=== PATIENT | female | born 1955 | race African-American/Black ===

== ENCOUNTER → 2017-03-08 | Day surgery (SDC) | payer BC ==
[~2017-03-08] MED LIST: FELO10TA PO; GABA300C8 PO; HYDR1TAB26 PO; HYDROmorphone 2 MG/ML VIAL IV PRN; IV RINGERS,LACTATED 1000ML 1,000 ML IV SCH; LIDOCAINE 1% 1 ML SYRINGE. ID PRN; LISI-334; MELO7.5O PO; MORPHINE SULFATE 2 MG/ML DISP.SYRIN. IV PRN; ONDANSETRON PF 4 MG/2 ML VIAL. IV PRN; PROCHLORPERAZINE 10 MG/2 ML VIAL. IV PRN; PROPOFOL 20 ML IV ONE; TIZA4TAB PO; fentaNYL PF VIAL 100 MCG/2 ML VIAL IV PRN
[2017-03-08 13:10] VITALS: BP 127/72
== END | disposition home or self-care (01) ==
LOC: ENDOS 10:53
PROVIDERS: ATTEND Internal Medicine Gastroenterology
DX: Z12.11 Encounter for screening for malignant neoplasm of colon (principal); K64.0 First degree hemorrhoids; I10 Essential (primary) hypertension; M19.90 Unspecified osteoarthritis, unspecified site; Z72.89 Other problems related to lifestyle; Z98.51 Tubal ligation status; Z90.710 Acquired absence of both cervix and uterus; Z80.0 Family history of malignant neoplasm of digestive organs
CPT/HCPCS: J2704

== ENCOUNTER → 2017-11-06 | Outpatient (CLI) | payer BC | END | disposition home or self-care (01) | LOC: KCIC MRI 10:37 | DX: M67.432 Ganglion, left wrist (principal) | CPT/HCPCS: 73221 ==

== ENCOUNTER → 2021-06-17 | Outpatient (CLI) | payer MEDICARE, BC ==
[2017-03-08 13:10] VITALS: BP 127/72
[~2021-06-17] MED LIST changes: +ATEN1TAB3 PO; +CYCL10TA2 PO; -FELO10TA PO; +FELO10TA4 PO; +GABA300C18 PO; -GABA300C8 PO; -HYDROmorphone 2 MG/ML VIAL IV PRN; -IV RINGERS,LACTATED 1000ML 1,000 ML IV SCH; -LIDOCAINE 1% 1 ML SYRINGE. ID PRN; -LISI-334; +LISI20TA18; -MORPHINE SULFATE 2 MG/ML DISP.SYRIN. IV PRN; -ONDANSETRON PF 4 MG/2 ML VIAL. IV PRN; -PROCHLORPERAZINE 10 MG/2 ML VIAL. IV PRN; -PROPOFOL 20 ML IV ONE; -TIZA4TAB PO; +TIZA4TAB2 PO; -fentaNYL PF VIAL 100 MCG/2 ML VIAL IV PRN
[2021-06-17 14:38] LABS: BASO # 0.1 x10^3/uL (0.0-0.2); BASO % 1 % (0-3); EOS # 0.2 x10^3/uL (0.0-0.7); EOS % 2 % (0-3); HEMATOCRIT 34.8 % (36.0-47.0); HEMOGLOBIN 11.3 g/dL (12.0-15.5); LYMPH # 2.9 x10^3/uL (1.0-4.8); LYMPH % 28 % (24-48); MEAN CORPUSCULAR HEMOGLOBIN 26 pg (25-35); MEAN CORPUSCULAR HGB CONC 32 g/dL (31-37); MEAN CORPUSCULAR VOLUME 79 fL (79-100); MONO # 0.6 x10^3/uL (0.0-1.1); MONO % 6 % (0-9); NEUT # 6.7 x10^3/uL (1.8-7.7); NEUT % 64 % (31-73); PLATELET COUNT 349 x10^3/uL (140-400); RED BLOOD COUNT 4.42 x10^6/uL (3.50-5.40); WHITE BLOOD COUNT 10.5 x10^3/uL (4.0-11.0)
[2021-06-17 14:53] LABS: ALBUMIN 3.4 g/dL (3.4-5.0); ALBUMIN/GLOBULIN RATIO 0.8 (1.0-1.7); CALCIUM 9.1 mg/dL (8.5-10.1); CREATININE 1.1 mg/dL (0.6-1.0); GFR 60.1; TOTAL BILIRUBIN 0.4 mg/dL (0.2-1.0); TOTAL PROTEIN 7.7 g/dL (6.4-8.2)
--- NOTE | 2021-06-17 14:53 | EKG ---
[facility] [address] [place] [id number] Test Date: 2021-06-17 Test Time: 14:49:07 Pat Name: SANDEEP VALENTINE Department: Room: Gender: F Fluorescent Solution Mixer: SLOAN : [id number] Requested By: MYKE FRIED Order Number: [id number] Reading MD: Lit Lofton Measurements Intervals Aurora Rate: 66 P: 44 ME: 202 QRS: -41 QRSD: 110 T: 7 QT: 434 QTc: 457 Interpretive Statements SINUS RHYTHM LEFT ATRIAL ABNORMALITY ABNORMAL LEFT AXIS DEVIATION LEFT ANTERIOR FASCICULAR BLOCK LEFT VENTRICULAR HYPERTROPHY Electronically Signed On 06-20-2021 9:29:38 CDT by Lit Lofton
[2021-06-17 14:55] LABS: POTASSIUM 2.5 mmol/L (3.5-5.1)
--- NOTE | 2021-06-17 15:02 | RAD ---
EXAM: Chest, 2 views. HISTORY: Preoperative evaluation. COMPARISON: None. FINDINGS: 2 views of the chest are obtained. There is no infiltrate, pleural effusion or pneumothorax . There is a prominent cardiac silhouette. There is right perihilar embolization material. IMPRESSION: No acute pulmonary finding. Electronically signed by: Zohra Ford MD (06/17/2021 2:59 PM) [id number]
--- NOTE | 2021-06-17 15:02 | NUR ---
PT HERE FOR PRE TESTING LABS, POTASSIUM 2.5. DR FRIED'S RN DANG NOTIFIED.
[2021-06-17 15:06] LABS: BILIRUBIN,URINE NEGATIVE (NEG); CLARITY,URINE CLEAR; COLOR,URINE YELLOW; NITRITE,URINE NEGATIVE (NEG); PROTEIN,URINE NEGATIVE (NEG-TRACE)
[2021-06-17 15:14] LABS: BACTERIA,URINE FEW /HPF (0-FEW); HYALINE CASTS, URINE OCCASIONAL /HPF; RBC,URINE RARE /HPF (0-2); WBC,URINE OCC /HPF (0-4)
[2021-06-18 00:08] LABS: HEMOGLOBIN A1C 6.2 % (4.8-5.6)
== END ==
LOC: SURGPAT 13:36
PROVIDERS: ATTEND Obstetrics & Gynecology
DX: Z01.818 Encounter for other preprocedural examination (principal); I44.4 Left anterior fascicular block; I51.7 Cardiomegaly; I10 Essential (primary) hypertension; R73.03 Prediabetes
CPT/HCPCS: 36415; 71046; 80053; 81001; 83036; 85025; 93005

== ENCOUNTER 2021-07-13 06:05 | Observation (INO) | payer MEDICARE, BC ==
[2021-07-13] VITALS (8 sets, daily range): BP systolic 112–166; BP diastolic 62–80
[~2021-07-13] VITALS: Ht 162.6 cm; Wt 102.0 kg
[~2021-07-13 06:05] MED LIST changes: +HYDROmorphone 2 MG/ML VIAL IVP PRN; +IV RINGERS,LACTATED 1000ML 1,000 ML IV SCH; +MORPHINE SULFATE 2 MG/ML INJ. IVP PRN; +POTA10TA12 PO; +PROCHLORPERAZINE 10 MG/2 ML VIAL. IVP PRN; +fentaNYL PF VIAL 100 MCG/2 ML VIAL IVP PRN
[2021-07-13] MEDS ORDERED: ONDANSETRON PF 4 MG/2 ML VIAL. ONE (06:23)
[2021-07-13] MEDS ORDERED: PROPOFOL 10 MG/ML (20ML) VIAL. IV ONE (06:23)
[2021-07-13] MEDS ORDERED: LIDOCAINE 2% PF 5 ML VIAL. ONE (06:23)
[2021-07-13] MEDS ORDERED: ROCURONIUM 50 MG/5 ML VIAL. ONE ×2 (06:23→09:20)
[2021-07-13] MEDS ORDERED: DEXAMETHASONE SOD PHOS 4 MG/ML VIAL ONE (06:23)
[2021-07-13] MEDS ORDERED: ESTROGENS, CONJ VAGINAL CREAM 30GM TUBE. ONE (06:57)
[2021-07-13] MEDS ORDERED: BUPIVACAINE-EPI 0.25%-1:200000 MPF 30 ML VIAL. ONE (06:57)
[2021-07-13] MEDS ORDERED: INDIGOTINDISULFONATE SODIUM 40 MG/5 ML AMPUL. ONE (06:57)
[2021-07-13 07:03] LABS: BASO % 1 % (0-3); EOS # 0.3 x10^3/uL (0.0-0.7); EOS % 3 % (0-3); HEMATOCRIT 33.5 % (36.0-47.0); LYMPH # 2.3 x10^3/uL (1.0-4.8); LYMPH % 28 % (24-48); MEAN CORPUSCULAR HEMOGLOBIN 26 pg (25-35); MEAN CORPUSCULAR HGB CONC 33 g/dL (31-37); MEAN CORPUSCULAR VOLUME 80 fL (79-100); MONO # 0.5 x10^3/uL (0.0-1.1); MONO % 6 % (0-9); NEUT # 5.1 x10^3/uL (1.8-7.7); NEUT % 63 % (31-73); PLATELET COUNT 373 x10^3/uL (140-400); RED CELL DISTRIBUTION WIDTH 16.8 % (11.5-14.5); WHITE BLOOD COUNT 8.2 x10^3/uL (4.0-11.0)
[2021-07-13] MEDS ORDERED: fentaNYL PF VIAL 250 MCG/5 ML VIAL ONE (07:26)
[2021-07-13] MEDS ORDERED: SUCCINYLCHOLINE 200 MG/10 ML VIAL. ONE (07:27)
[2021-07-13] MEDS ORDERED: MIDAZOLAM HCL/PF 2 MG/2 ML VIAL. ONE ×2 (08:06→08:07)
[2021-07-13] MEDS ORDERED: ePHEDrine PF IN SALINE 50 MG/10 ML SYRINGE. IV ONE (08:07)
[2021-07-13] MEDS ORDERED: GLYCOPYRROLATE 1 MG/5 ML VIAL. ONE (08:23)
[2021-07-13] MEDS ORDERED: NEOSTIGMINE METHYLSULFATE 5 MG/5 ML SYRINGE. ONE (09:41)
[2021-07-13] MEDS ORDERED: CALCIUM CARBONATE 500 MG TAB.CHEW PO PRN (10:45)
[2021-07-13] MEDS ORDERED: LACTULOSE 20 GM/30 ML SOLUTION. PO PRN (10:45)
[2021-07-13] MEDS ORDERED: ONDANSETRON PF 4 MG/2 ML VIAL. IV PRN (10:45)
[2021-07-13] MEDS ORDERED: MAGNESIUM HYDROXIDE 2,400 MG/30 ML ORAL.SUSP. PO PRN (10:45)
[2021-07-13] MEDS ORDERED: SIMETHICONE 80 MG TAB.CHEW PO PRN (10:45)
[2021-07-13] MEDS ORDERED: MORPHINE SULFATE 2 MG/ML INJ. IV PRN (10:45)
[2021-07-13] MEDS ORDERED: diphenhydrAMINE HCL 25 MG CAPSULE PO PRN (10:45)
[2021-07-13] MEDS ORDERED: NALOXONE 0.4 MG/ML VIAL. IV PRN (10:45)
[2021-07-13] MEDS ORDERED: HYDROcodone/APAP 5/325MG 1 TAB TABLET PO PRN (10:45)
[2021-07-13] MEDS ORDERED: ZOLPIDEM 5 MG TABLET. PO PRN (10:45)
[2021-07-13] MEDS ORDERED: diphenhydrAMINE 50 MG/ML VIAL IV PRN (10:45)
[2021-07-13] MEDS ORDERED: 0.9 % SODIUM CHLORIDE 10 ML DISP.SYRIN. IV PRN (10:45)
[2021-07-13] MEDS ORDERED: MAG HYDROX/ALUMINUM HYD/SIMETH 30 ML ORAL.SUSP PO PRN (10:45)
[2021-07-13] MEDS ORDERED: SEVOFLURANE > 120 MINUTES. IH ONE (10:50)
--- NOTE | 2021-07-13 10:59 | PDOC ---
BRIEF OPERATIVE NOTE Date: Jul 13, 2021 Pre-Op Diagnosis enlarged fibroid uterus, anemia, pmb Post-Op Diagnosis same plus adhesions Procedure Performed LAVH/BSO/lysis of bowel adhesions and morcellation of uterus vaginally to get it out Surgeon Dr. Livia Fried Forward Air Controller/Air Officer DERREK Franco Anesthesiologist Dr. Willoughby Anesthesia Type: General Blood Loss 300cc IV Fluid 2L Urine Output 350cc clear until morcellation then slightly pink but clearing by end of case Specimens Obtained cervix, uterus, fibroids, bilateral tubes and ovaries Findings enlarged fibroid uterus, left sided bowel adhesions to left tube, also adhesions of pericolic fat to posterior fibroids on post uterus, adhesions under prior tubal incision infraumbilical incision Complications none Operative Note [id number] LIVIA FRIED MD Jul 13, 2021 10:59
[2021-07-13 11:30] LABS: HEMATOCRIT 31.1 % (36.0-47.0); RED BLOOD COUNT 3.88 x10^6/uL (3.50-5.40); RED CELL DISTRIBUTION WIDTH 16.5 % (11.5-14.5); WHITE BLOOD COUNT 13.4 x10^3/uL (4.0-11.0)
[2021-07-13] MEDS ORDERED: fentaNYL PF VIAL 100 MCG/2 ML VIAL ONE (11:36)
[2021-07-13] MEDS: fentaNYL PF VIAL 100 MCG/2 ML VIAL IVP PRN ×2 (11:40→11:55)
--- NOTE | 2021-07-13 13:17 | OP ---
DATE OF SURGERY: 07/13/2021 PREOPERATIVE DIAGNOSES: Enlarged fibroid uterus, anemia, postmenopausal bleeding. POSTOPERATIVE DIAGNOSES: Enlarged fibroid uterus, anemia, postmenopausal bleeding plus adhesive disease. PROCEDURES: Laparoscopic-assisted vaginal hysterectomy, bilateral salpingo-oophorectomy, lysis of bowel adhesions and morcellation of uterus vaginally to get it out. SURGEON: Livia Vasquez MD BRUSH HOLDER INSPECTOR: DERREK Fenton ANESTHESIOLOGIST: Justin Willoughby MD ANESTHESIA: General. BLOOD LOSS: 300 mL URINE OUTPUT: 350 mL initially clear until the morcellation and then slightly pink tinged, but it was already clearing by the end of the case. INTRAVENOUS FLUIDS: 2 liters of crystalloid. SPECIMENS: The cervix, uterus, tubes, ovaries with obviously the fibroids. FINDINGS: An enlarged fibroid uterus, left-sided bowel adhesions to the left tube also pericolic adhesions to the posterior uterus where the fibroids and stuff were all along the left side and then she also had omental adhesions infraumbilical over the previous incision site of her prior tubal ligation. COMPLICATIONS: None. DESCRIPTION OF PROCEDURE: This patient was taken to the operating room where general anesthesia was placed. The patient was [facility] The patient's abdomen and vagina were both prepped and draped in the normal sterile fashion and a Ruiz catheter had been inserted under sterile technique. Upon my arrival, a time-out was performed. Once everyone agreed on the patient, the site, the procedure, the antibiotics, the procedure was initiated. A bivalve speculum was placed in the patient's vagina. A single-tooth tenaculum was used to grasp the anterior lip of the cervix. A 10 mL of 0.25% Marcaine with epinephrine was used to circumferentially inject around the cervix for both hemodissection and hemostatic purposes later. The Valtchev uterine manipulator was placed through the endocervical os, locked on the single tooth tenaculum and the bivalve speculum was then removed. Top gloves were discarded and changed. Attention was then turned to the abdomen where a supraumbilical incision was made with the scalpel, carried down through the underlying layer to the fascia with the curved Noram. The 5 mm Visiport was used to directly enter the abdominal cavity. Opening patient pressure was 10 or 11 mmHg. She had a very thick anterior abdominal wall, but direct abdominal placement was confirmed via the laparoscope and carbon dioxide gas was used to appropriately insufflate the abdominal cavity initially to maintain 15, but it did not insufflate, just going up 4-5 mmHg, so we did turn it up to 17 or 18. At this point, Trendelenburg was obtained. Overhead lights were dimmed. Right and left lower quadrant ports were obtained. We went around the adhesion in the midline. We did not take that one down. Right tube and ovary were clear, enlarged fibroid uterus. Left ovary was under the bowel, but the left tube was in the bowel and on the posterior uterus where the fibroid was, so this all had to be taken down off the left sidewall, the left bowel and the left tube sharply. Once the bowel was out of the way, the left tube and ovary were elevated, the ureter could be seen coursing low in the pelvis well out of the way, so crossing the left infundibulopelvic ligament with the LigaSure, cauterizing and cutting going over and staying right under the left tube and ovary and then crossing the left round ligament, cauterizing and cutting it and starting that bladder flap from that side. This was done exactly the same on the right side, except it was free, elevating the right tube and ovary finding the ureter coursing low and watching it peristalsed in the pelvis, staying high on the infundibulopelvic ligament, cauterizing and cutting, taking it all the way over crossing the right round ligament going down and making that bladder flap again sharply. Once this was done, the uterus was pushed cephalad getting the right uterine vessels on this side and then staying inside that pedicle posteriorly, hugging the posterior cervix and getting the blood supply. Then, crossing contralaterally, once that bladder was down and hugging right on that cervix and trying to stay vertical and hugged that cervix on the left side as well. The uterus did juan a and we did get the blood supply. The posterior area was clear. There were no adhesions in the posterior cul-de-sac. So, once it cleared and we made sure the bladder was down and we got the blood supply, we decided to go vaginally. The single tooth and Valtchev were removed. A weighted speculum was placed in the patient's vagina. Thyroid Christopher clamps were placed on the anterior and posterior lips of the cervix respectively. A scalpel was used to make a circumferential incision in the cervix. The blunt end of the plastic Yankauer tip was used to gently push up the anterior bladder peritoneum. This went up very nicely sharply and then bluntly using the open Ray-Terry to gently push up the anterior bladder peritoneum. Posteriorly, the cervix was elevated and the posterior cul-de-sac was seen bulging and it was sharply entered with curved Smallwood scissors and a #0 Vicryl stitch was used to secure the posterior peritoneum here to the vaginal cuff, was tagged with a curved Norma clamp and the needle was cut and passed off. At this point, the short weighted vaginal speculum was removed and replaced with the long weighted Russ speculum in the posterior cul-de-sac. Curved Varinder clamps x 2 were placed on the patient's left uterosacral ligament where they were doubly clamped with curved Varinder's, cut with curved Smallwood scissors and suture ligated x 2 with 0 Vicryl. Second one was taken through the vaginal cuff securing uterosacral ligament to the vaginal cuff, tagged with a straight Norma clamp and the needle was cut and passed off. This was done exactly the same on the patient's right side, double clamping the uterosacrals with curved Varinder's, cutting with curved Smallwood scissors, suture ligating x 2 with 0 Vicryl and taking the second one through the vaginal cuff, tagging it with a straight Norma clamp, cutting and passing the needle off. At this point, a curved Mixter clamp was taken around the remaining pedicle on the left side and the vaginal LigaSure was used to cauterize and cut the remaining pedicle. It did appear to be free on this side, I could get my finger all the way around and then there was a tiny bit on the right side that was easily my finger got around and we cauterized and cut it as well. Once everything appeared to be out, lifting the cervix anteriorly and trying to get the posterior uterus with a couple single tooth and double tooth tenaculums. The morcellation was begun once the blood supply had been secured. Taking it out in pieces making very sure to keep a retractor up on the bladder and a retractor on the side and then of course the weighted Russ speculum was in the posterior cul-de-sac, taking it out in pieces until we finally got it out. There were multiple fibroids, multiple pieces cut out. This was a very enlarged uterus. There was some slight bleeding from the patient's left. It appeared to be left uterosacral ligament. A Burlisher was placed on this with an excellent result, but 2-0 Vicryl was used to ____ obtain the bleeding. Once this was done, a sponge stick was used to examine the pedicles. Once they appeared to be dry, the long Russ speculum was removed and replaced with the short weighted vaginal speculum. I could not see the anterior bladder peritoneum well, so I just went under the cuff and took 2-0 Vicryl and then through the left uterosacral ligament, posterior peritoneum and right uterosacral ligament, thus closing the peritoneum in a pursestring like fashion. Once this was done, the right and left uterosacral tags were clipped and the cuff was closed in an anterior to posterior running locked fashion. Before doing this, she had a slight tear on her right side towards that uterosacral ligament, I did put a few imbricating like interrupted stitches here securing that posterior peritoneum to the edge of the cuff, making sure there was no active bleeding and closing that off. Once that was done, the cuff was closed in an anterior to posterior running locked fashion and was hemostatic. All counts were correct below x2 before going above. All gloves were discarded and changed and attention was turned back above. Copious irrigation, there was some slight bleeding again just from that left side near the uterosacral ligament and the LigaSure was used to cauterize this area. Once this was done, all the pedicles remained dry. The posterior cul-de-sac was fine. Right and left pericolic gutters were clear. Right upper quadrant looked okay, so Alexus was placed over all the pedicles with excellent results. It remained fluffy and white and dry with nothing welling up, nothing. The trocar cuff, the 4-5 mL of air that were put in these after placing the right and left lower quadrant ports, those were taken out and then trocars were removed. They were hemostatic as well and we looked again at the cul-de-sac, it remained dry and fluffy with the ____ Alexus and so, gas was released from that umbilical port and then it was removed as well. All 3 port sites were closed with 4-0 nylon at the skin and injected with local. The Ruiz catheter was removed. The patient was awakened from anesthesia and brought to recovery room in stable condition. ARISTEO/HAFSA DR: Stan TID: [id number]
[2021-07-13] MEDS: oxyCODONE/APAP 5/325 1 TAB TABLET PO PRN ×2 (17:03→21:03)
[2021-07-14] MEDS: oxyCODONE/APAP 5/325 1 TAB TABLET PO PRN ×3 (01:27→10:53)
[2021-07-14 01:32] VITALS: BP 115/56
[2021-07-14 05:54] VITALS: BP 108/60
[2021-07-14 06:55] LABS: GFR 66.9; POTASSIUM 3.7 mmol/L (3.5-5.1)
[2021-07-14 08:00] VITALS: BP 113/66
--- NOTE | 2021-07-14 11:48 | PDOC ---
SURGICAL PROGRESS NOTE DATE: 07/14/21 TIME: 11:36 Subjective Doing well without complaints. Tolerating regular diet;voiding without catheter and + flatus Vital Signs Vital Signs Date Time Temp Pulse Resp B/P (MAP) Pulse Ox O2 Delivery O2 Flow Rate FiO2 07/14/21 10:53 18 Room Air 07/14/21 08:00 98.1 65 113/66 (82) 95 98.1 07/14/21 05:57 2.0 I&O Intake and Output 07/14/21 07:00 Intake Total 2050 ml Output Total 1350 ml Balance 700 ml Intake IV Total 2050 ml Output Urine Total 1050 ml Estimated Blood Loss 300 ml # Voids 1 PATIENT HAS A WARD: No General: Alert, Oriented X3, Cooperative, No acute distress HEENT: Atraumatic Heart: Regular rate Abdomen: Soft, No tenderness, Other (all port sites c/d/i) Extremities: No clubbing, No cyanosis, No edema, No tenderness/swelling Skin: No rashes, No breakdown Neuro: Normal speech Psych/Mental Status: Mental status NL, Mood NL Labs Laboratory Tests Test 07/13/21 06:30 07/13/21 11:21 07/14/21 06:10 White Blood Count 8.2 x10^3/uL (4.0-11.0) 13.4 x10^3/uL (4.0-11.0) Red Blood Count 4.20 x10^6/uL (3.50-5.40) 3.88 x10^6/uL (3.50-5.40) Hemoglobin 11.0 g/dL (12.0-15.5) 10.0 g/dL (12.0-15.5) Hematocrit 33.5 % (36.0-47.0) 31.1 % (36.0-47.0) 28.6 % (36.0-47.0) Mean Corpuscular Volume 80 fL (79-100) 80 fL (79-100) Mean Corpuscular Hemoglobin 26 pg (25-35) 26 pg (25-35) Mean Corpuscular Hemoglobin Concent 33 g/dL (31-37) 32 g/dL (31-37) Red Cell Distribution Width 16.8 % (11.5-14.5) 16.5 % (11.5-14.5) Platelet Count 373 x10^3/uL (140-400) 321 x10^3/uL (140-400) Neutrophils (%) (Auto) 63 % (31-73) Lymphocytes (%) (Auto) 28 % (24-48) Monocytes (%) (Auto) 6 % (0-9) Eosinophils (%) (Auto) 3 % (0-3) Basophils (%) (Auto) 1 % (0-3) Neutrophils # (Auto) 5.1 x10^3/uL (1.8-7.7) Lymphocytes # (Auto) 2.3 x10^3/uL (1.0-4.8) Monocytes # (Auto) 0.5 x10^3/uL (0.0-1.1) Eosinophils # (Auto) 0.3 x10^3/uL (0.0-0.7) Basophils # (Auto) 0.0 x10^3/uL (0.0-0.2) Potassium Level 3.4 mmol/L (3.5-5.1) 3.7 mmol/L (3.5-5.1) Sodium Level 140 mmol/L (136-145) Chloride Level 107 mmol/L (98-107) Carbon Dioxide Level 27 mmol/L (21-32) Anion Gap 6 (6-14) Blood Urea Nitrogen 8 mg/dL (7-20) Creatinine 1.0 mg/dL (0.6-1.0) Estimated GFR (Cockcroft-Gault) 66.9 Glucose Level 105 mg/dL (70-99) Calcium Level 8.0 mg/dL (8.5-10.1) Laboratory Tests Test 07/14/21 06:10 Hematocrit 28.6 % (36.0-47.0) Sodium Level 140 mmol/L (136-145) Potassium Level 3.7 mmol/L (3.5-5.1) Chloride Level 107 mmol/L (98-107) Carbon Dioxide Level 27 mmol/L (21-32) Anion Gap 6 (6-14) Blood Urea Nitrogen 8 mg/dL (7-20) Creatinine 1.0 mg/dL (0.6-1.0) Estimated GFR (Cockcroft-Gault) 66.9 Glucose Level 105 mg/dL (70-99) Calcium Level 8.0 mg/dL (8.5-10.1) I have reviewed the following labs, vitals, nursing Cardiovascular: HTN Assessment/Plan POD #1 s/p LAVH/BSO/lysis of adhesions Routine PO care d/c to home later today NPV x 6 weeks light/limited activity x 2 weeks keep scheduled follow up with me in the office in one week already has narcotic pain meds filled at home; ok for OTC ibuprofen as needed also NO driving on narcotic pain meds or for at least one week call or return sooner for any other questions or concerns not limited to but including pain unrelieved by pain meds, increased or unexplained vb or T>100.4 Justicifation of Admission Dx: Justifications for Admission: Justification of Admission Dx: Yes MYKE FRIED MD Jul 14, 2021 11:48
--- NOTE | 2021-07-14 11:51 | PDOC3 ---
Discharge Summary Visit Information Date of Admission: Jul 13, 2021 Date of Discharge: Jul 14, 2021 Final Diagnosis enlarged fibroid uterus; PMB Brief Hospital Course Allergies Allergies Coded Allergies Type Severity Reaction Last Updated Verified shellfish derived Allergy Severe anaphylaxis 07/13/21 Yes Vital Signs Vital Signs Date Time Temp Pulse Resp B/P (MAP) Pulse Ox O2 Delivery O2 Flow Rate FiO2 07/14/21 10:53 18 Room Air 07/14/21 08:00 98.1 65 113/66 (82) 95 98.1 07/14/21 05:57 2.0 Lab Results Laboratory Tests Test 07/13/21 06:30 07/13/21 11:21 07/14/21 06:10 White Blood Count 8.2 x10^3/uL (4.0-11.0) 13.4 x10^3/uL (4.0-11.0) Red Blood Count 4.20 x10^6/uL (3.50-5.40) 3.88 x10^6/uL (3.50-5.40) Hemoglobin 11.0 g/dL (12.0-15.5) 10.0 g/dL (12.0-15.5) Hematocrit 33.5 % (36.0-47.0) 31.1 % (36.0-47.0) 28.6 % (36.0-47.0) Mean Corpuscular Volume 80 fL (79-100) 80 fL (79-100) Mean Corpuscular Hemoglobin 26 pg (25-35) 26 pg (25-35) Mean Corpuscular Hemoglobin Concent 33 g/dL (31-37) 32 g/dL (31-37) Red Cell Distribution Width 16.8 % (11.5-14.5) 16.5 % (11.5-14.5) Platelet Count 373 x10^3/uL (140-400) 321 x10^3/uL (140-400) Neutrophils (%) (Auto) 63 % (31-73) Lymphocytes (%) (Auto) 28 % (24-48) Monocytes (%) (Auto) 6 % (0-9) Eosinophils (%) (Auto) 3 % (0-3) Basophils (%) (Auto) 1 % (0-3) Neutrophils # (Auto) 5.1 x10^3/uL (1.8-7.7) Lymphocytes # (Auto) 2.3 x10^3/uL (1.0-4.8) Monocytes # (Auto) 0.5 x10^3/uL (0.0-1.1) Eosinophils # (Auto) 0.3 x10^3/uL (0.0-0.7) Basophils # (Auto) 0.0 x10^3/uL (0.0-0.2) Potassium Level 3.4 mmol/L (3.5-5.1) 3.7 mmol/L (3.5-5.1) Sodium Level 140 mmol/L (136-145) Chloride Level 107 mmol/L (98-107) Carbon Dioxide Level 27 mmol/L (21-32) Anion Gap 6 (6-14) Blood Urea Nitrogen 8 mg/dL (7-20) Creatinine 1.0 mg/dL (0.6-1.0) Estimated GFR (Cockcroft-Gault) 66.9 Glucose Level 105 mg/dL (70-99) Calcium Level 8.0 mg/dL (8.5-10.1) Laboratory Tests Test 07/14/21 06:10 Hematocrit 28.6 % (36.0-47.0) Sodium Level 140 mmol/L (136-145) Potassium Level 3.7 mmol/L (3.5-5.1) Chloride Level 107 mmol/L (98-107) Carbon Dioxide Level 27 mmol/L (21-32) Anion Gap 6 (6-14) Blood Urea Nitrogen 8 mg/dL (7-20) Creatinine 1.0 mg/dL (0.6-1.0) Estimated GFR (Cockcroft-Gault) 66.9 Glucose Level 105 mg/dL (70-99) Calcium Level 8.0 mg/dL (8.5-10.1) Brief Hospital Course Ms. Alan is a 66 old female who presented with enlarged fibroid uterus, PMB and anemia. She underwent definitive therapy yesterday with LAVH/BSO and was found to have bowel adhesions to left pelvic side and uterus that were also taken down. She underwent the procedure without complications. She has had an unremarkable postoperative course...tolerating pO, voiding without catheter and passing flatus. She is more stable on her feet today. Assessment Assessment POD #1 s/p LAVH/BSO/lysis of adhesions Routine PO care d/c to home later today NPV x 6 weeks light/limited activity x 2 weeks keep scheduled follow up with me in the office in one week already has narcotic pain meds filled at home; ok for OTC ibuprofen as needed also NO driving on narcotic pain meds or for at least one week call or return sooner for any other questions or concerns not limited to but including pain unrelieved by pain meds, increased or unexplained vb or T>100.4 Discharge Information Condition at Discharge: Stable Follow Up: Weeks Disposition/Orders: D/C to Home Scheduled Atenolol/Chlorthalidone (Atenolol-Chlorthal 50-25 Tb) 1 Each Tablet, 1 TAB PO DAILY for ANTIHYPERTENSIVE, (Reported) Entered as Reported by: Jelly Hickey on 06/17/21 1504 Last Taken: Unknown Dose on 07/13/21 0515 Last Action: Reviewed on 07/13/21644 by ALEXY HU Cyclobenzaprine Hcl (Cyclobenzaprine Hcl) 10 Mg Tablet, 1 TAB PO BID for PAIN, #90 (Reported) Entered as Reported by: Jelly Hickey on 06/17/21 1504 Last Taken: Unknown Dose on 06/28/21 Last Action: Reviewed on 07/13/21644 by ALEXY HU Potassium Chloride (Klor-Con 10) 10 Meq Tablet.er, 10 MEQ PO BID for potassium , (Reported) Entered as Reported by: ART URENA on 07/12/21 1129 Last Taken: Unknown Dose on 07/12/21 Last Action: Reviewed on 07/13/21644 by ALEXY HU Patient Instructions Patient Instructions POD #1 s/p LAVH/BSO/lysis of adhesions Routine PO care d/c to home later today NPV x 6 weeks light/limited activity x 2 weeks keep scheduled follow up with me in the office in one week already has narcotic pain meds filled at home; ok for OTC ibuprofen as needed also NO driving on narcotic pain meds or for at least one week call or return sooner for any other questions or concerns not limited to but including pain unrelieved by pain meds, increased or unexplained vb or T>100.4 ok to resume home meds Justicifation of Admission Dx: Justifications for Admission: Justification of Admission Dx: Yes MYKE FRIED MD Jul 14, 2021 11:51
[2021-07-14 12:30] VITALS: BP 143/67
--- NOTE | 2021-07-14 16:00 | NUR ---
When getting up for shower vomited sm amt of fluid then not nauseated thru anesthesiology crna. After shower she threw up small again. Has bowel sounds and sitting in rocking chair to help stimulate bowels to move. No dizziness while up.
[2021-07-14 16:09] VITALS: BP 142/71
--- NOTE | 2021-07-14 18:05 | NUR ---
last charting was under benny medina rn and was done by lobito blanco rn Dismissed per w/c to in care. No nausea or vomiting or dizzyness. Pain med working Did home care instructions with pt reading but forgot to have her sign with a copy. She got instructions on hyst.
--- NOTE | 2021-07-15 18:08 | PATHOLOGY ---
[facility] Accession Number: [id number] . 01 Material submitted: . uterus - UTERUS, CERVIX, FIBROIDS, TUBES AND OVARIES . 01 Clinical history: . ENDOMETRIAL THICKENING . 02 Diagnosis: Segments of uterine corpus, uterine cervix, and bilateral fallopian tubes and ovaries, laparoscopic assisted vaginal hysterectomy with bilateral salpingo-oophorectomy: - Leiomyomas, uterine corpus, multiple, the largest measuring 6.7 cm in greatest dimension, one of which shows infarction and calcification (weight 281 grams). - Chronic cervicitis with squamous metaplasia, focal. - Nabothian cysts, cervix. - Disordered proliferative endometrium. - Paratubal cysts, bilateral. - Paratubal endometriosis, focal, side indeterminate. - Bilateral ovaries showing involutional changes. (JPM:trinidad; 07/15/2021) [facility] [place] 07/15/2021 1327 Local . 02 Comment: There is no atypia or evidence of malignancy. (ISHAM:trinidad; 07/15/2021) . 02 Electronically signed: . Ry Luna MD, Pathologist NPI- [id number] . 01 Gross description: . Fixative: Formalin Labeled: Uterus, cervix, fibroids, tubes and ovaries Specimen received: Multiple vieyra-pink, morcellated tissue segments consistent with a disrupted uterus, an intact but unoriented cervix, 2 unoriented fallopian tubes, 2 unoriented ovaries, and multiple rubbery nodules Uterus weight: 281 g Uterus: 14.5 x 14.5 x 4.5 cm in aggregate Serosa: Vieyra and markedly disrupted Ectocervix: White, focally hemorrhagic, focally roughened and focally smooth Cervical os: Slitlike, measuring 1.0 cm Endocervical canal: 3.4 x 1.1 cm Endometrial cavity: Cannot be determined due to disruption Endometrial thickness: 0.1 cm Myometrial thickness: Cannot be determined due to disruption Lesions/abnormalities: Multiple vieyra-white, rubbery, focally calcified, whorled nodules ranging from 0.7-6.7 cm in greatest dimension. (Fallopian tubes and ovaries arbitrarily designated by grosspaulino) fallopian tube 1: 2.0 cm in length, 0.6 cm in diameter, present fimbria fallopian tube 1 appearance: Vieyra and focally disrupted fallopian 2 tube: 4.5 cm in length, 0.5 cm in diameter, present fimbria fallopian tube 2 appearance: Vieyra, focally hemorrhagic and smooth with a smooth-walled, hemorrhagic cyst adjacent to the fimbriated ends. ovary 1: 2 g, 2.3 x 1.4 x 1.0 cm ovary 1 appearance: Vieyra, cerebriform and intact. Sectioning reveals unremarkable ovarian parenchyma. ovary 2: 1 g, 2.0 x 1.1 x 1.0 cm ovary 2 appearance: Vieyra, cerebriform and intact. Sectioning reveals unremarkable ovarian parenchyma . Fitting Supervisor sections are submitted as follows: A1 cervix A2 cervix opposite of A1 A3 endomyometrium A4 fallopian tube 1 A5 fallopian tube 2 with cyst A6 ovary 1 A7 ovary 2 A8-A10 artist representative sections of nodules (A10 following decalcification) (MRF; 07/13/2021) [facility] 07/13/2021 1746 Local . 02 Pathologist provided ICD-10: D25.9, N72, N87.9, N88.8, N85.9, N83.8, N80.2 . 02 CPT . 582294 Specimen Comment: A courtesy copy of this report has been sent to [phone], [phone] Specimen Comment: [id number] Specimen Comment: Report sent to / DR SHUKLA Performed at: 01 [facility] [address], [place], [place] [id number] MD Bobby Rivera MD Phone: [phone] Performed at: 02 [facility] [address] [place], [place] [id number] MD Ry Luna MD Phone: [phone]
== END 2021-07-14 18:05 | disposition home or self-care (01) ==
LOC: SURG 06:05 → 3 SO LND 11:00
PROVIDERS: ADMIT Obstetrics & Gynecology; ATTEND Obstetrics & Gynecology
DX: D25.9 Leiomyoma of uterus, unspecified (principal); K66.0 Peritoneal adhesions (postprocedural) (postinfection); N95.0 Postmenopausal bleeding; D64.9 Anemia, unspecified; Z98.51 Tubal ligation status; Z79.899 Other long term (current) drug therapy
CPT/HCPCS: 36415; 58554; 80048; 84132; 85014; 85025; 85027; 86850; 86900; 86901; 96361; 96374; A4314; A4930; A6219; G0378; J0690; J1100; J2250; J2405; J2704; J2710; J3010; J3480; J3490; 88307; A4351; A4657; G0379; J0330

== ENCOUNTER → 2021-10-10 | Outpatient (CLI) | payer MEDICARE, BC ==
[~2021-10-10] MED LIST changes: +CYCL10TA19 PO; -CYCL10TA2 PO; -HYDROmorphone 2 MG/ML VIAL IVP PRN; -IV RINGERS,LACTATED 1000ML 1,000 ML IV SCH; -MORPHINE SULFATE 2 MG/ML INJ. IVP PRN; -PROCHLORPERAZINE 10 MG/2 ML VIAL. IVP PRN; +TIZA-75 PO; -TIZA4TAB2 PO; -fentaNYL PF VIAL 100 MCG/2 ML VIAL IVP PRN
--- NOTE | 2021-10-10 12:13 | KCIC ---
EXAM: Bilateral knees, standing view. HISTORY: Pain. COMPARISON: None. FINDINGS: A frontal standing view both knees is obtained. There is mild bilateral medial compartment joint space narrowing and right greater than left medial compartment and right lateral compartment sp urring. There is no fracture, dislocation or subluxation. IMPRESSION: Mild right greater than left medial compartment predominant osteoarthritis of both knees. Electronically signed by: Zohra Ford MD (10/10/2021 12:11 PM) [id number]
== END ==
LOC: KCIC 10:40
PROVIDERS: ATTEND Physical Medicine & Rehabilitation
DX: M17.0 Bilateral primary osteoarthritis of knee (principal); M25.861 Other specified joint disorders, right knee; M25.862 Other specified joint disorders, left knee
CPT/HCPCS: 73565